=== PATIENT | female | born 1940 | race Caucasian/White ===

== ENCOUNTER 2017-07-07 16:45 | Emergency (ER) | payer OTHER ==
[~2017-07-07] VITALS: Ht 162.6 cm; Wt 90.0 kg
[~2017-07-07 16:45] MED LIST: ATOR10TA PO; CLOP75TA PO; FURO10S TUBE; GABA300C3 PO; HUMSS; LEVO88TA2 PO; MELO7.5 PO; METO2.5T7 PO
[2017-07-07 16:49] VITALS: BP 147/65; PULSE 83; RESP 20; TEMP 98.8; O2SAT 96
--- NOTE | 2017-07-07 18:01 | PD ---
Physical Exam Date Seen by Provider: Jul 07, 2017 Time Seen by Provider: 17:58 Narrative 77 y/o female with OLIVARES for the past 2 weeks. Patient states frequent falls, some with dizziness, sometimes she "blacks out". OLIVARES 08/26. Patient has multiple abrasions to her hands and knees without current bleeding. Vital Signs reviewed. Patient is Stable and awaiting Bed Placement. Data Data Last Documented VS Vital Signs Date Time Temp Pulse Resp B/P (MAP) Pulse Ox O2 Delivery O2 Flow Rate FiO2 07/07/17 16:49 98.8 83 20 147/65 (92) 96 Room Air [facility] Medical Record Reviewed: Yes Supervised Visit with SEAN: Yes Condition: Stable Jerome Burgos Jul 07, 2017 18:01
--- NOTE | 2017-07-07 18:09 | PD ---
Physical Exam Date Seen by Provider: Jul 07, 2017 Time Seen by Provider: 18:06 Narrative 77 y/o female with Hx. CAD and Type 2 DM requiring Insulin, here with "Terrible Chest Pain" since this AM. Hx. "Small Heart Attack about a month ago". Patient on PCN for sinus/eye infection for the past 3 days. + Nausea. No Vomiting. Blood Sugar elevated last night. EKG/ Labs/ CXR ordered. Vital Signs reviewed. Patient is Stable and awaiting Bed Placement. Data Data Last Documented VS Vital Signs Date Time Temp Pulse Resp B/P (MAP) Pulse Ox O2 Delivery O2 Flow Rate FiO2 07/07/17 16:49 98.8 83 20 147/65 (92) 96 Room Air MDM Medical Record Reviewed: Yes Supervised Visit with SEAN: Yes Condition: Stable Jerome Burgos Jul 07, 2017 18:09
[2017-07-07] MEDS ORDERED: ACETAMINOPHEN 500 MG CPLT PO ONE (18:15)
--- NOTE | 2017-07-07 18:49 | RADRPT ---
EXAM DATE/TIME: 07/07/2017 18:34 [place] COMPARISON: No previous studies available for comparison. INDICATIONS : Chest pain and pressure MEDICAL HISTORY : None. SURGICAL HISTORY : None. ENCOUNTER: Initial ACUITY: 3 days PAIN SCORE: 8/10 LOCATION: Bilateral chest FINDINGS: A single view of the chest demonstrates the lungs to be symmetrically aerated without evidence of mas s, infiltrate or effusion. The cardiomediastinal contours are unremarkable. Osseous structures are intact. CONCLUSION: No acute disease. Jaret Roldan MD on July 07, 2017 at 18:47 Board Certified Radiologist. This report was verified electronically.
[2017-07-07 19:11] VITALS: BP_SYST 182; BP_SYST 185; BP_DIAS 82; BP_DIAS 83; PULSE 72; RESP 18; O2SAT 95
--- NOTE | 2017-07-07 19:13 | PD ---
HPI Chief Complaint: Chest Pain Time Seen by Provider: 19:05 Travel History International Travel<30 days: No Contact w/Intl Traveler<30days: No (pt 4 day delay in airport) Traveled to known affect area: No History of Present Illness HPI Patient comes in planning of intermittent chest pain ongoing over the past 3 days. Patient reports associated shortness of breath, cough, headaches, nausea , and tingling in her bilateral fingers. Patient just came home 2 days ago after sitting in the airport on standby for 4 days trying to go out of town to see her brother. While at the airport patient reports she pickup in case of conjunctivitis and is on antibiotics for this. Patient denies anything making her symptoms worse. Patient states she did use an inhaler that her daughter gave her that seemed to help with her breathing some. Denies any loss or change in bowel or bladder, vomiting, abdominal pain, or fevers. PFSH Past Medical History Cardiovascular Problems: Yes Cerebrovascular Accident: Yes Diabetes: Yes Social History Tobacco Use: No Substance Use: No Allergies-Medications (Allergen,Severity, Reaction): Coded Allergies: iodine (Unverified Allergy, Mild, 07/01/17) potassium iodide (Unverified Allergy, Mild, 07/01/17) povidone-iodine (Unverified Allergy, Mild, 07/01/17) sodium iodide (Unverified Allergy, Mild, 07/01/17) sodium iodide (Unverified Allergy, Mild, 07/01/17) Reported Meds & Prescriptions Reported Meds & Active Scripts Active Tamiflu (Oseltamivir Phosphate) 75 Mg Cap 75 Mg PO BID 5 Days Reported Lantus Inj (Insulin Glargine) 1,000 Unit/10 Ml Vial 25 Units SQ HS Amoxicillin-Clavulanate 875-125 mg Tab 875 Mg PO BID not for use in CrCl <30 mL/minute Vitamin B-12 (Cyanocobalamin) 1,000 Mcg Subl 1,000 Mcg SL DAILY Vitamin D3 (Cholecalciferol) 5,000 Unit Cap 5,000 Units PO DAILY Furosemide 40 Mg Tab 40 Mg PO DAILY Metolazone 5 Mg Tab 5 Mg PO DAILY Omeprazole 40 Mg Cap 40 Mg PO DAILY Losartan-Hydrochlorothiazide 100-25 Mg Tab 1 Tab PO DAILY Levothyroxine (Levothyroxine Sodium) 88 Mcg Tab 88 Mcg PO DAILY Clopidogrel (Clopidogrel Bisulfate) 75 Mg Tab 75 Mg PO DAILY Review of Systems Except as stated in HPI: all other systems reviewed are Neg Physical Exam Narrative GENERAL: Well-developed, overly nourished, in no acute distress, and non-ill appearing. SKIN: Focused skin assessment warm and dry. HEAD: Atraumatic. Normocephalic. EYES: Pupils equal and round. EOMI. No scleral icterus. No injection or drainage. ENT: No nasal bleeding or discharge. Mucous membranes pink and moist. NECK: Trachea midline. Supple. No nuclear rigidity. CARDIOVASCULAR: Regular rate and rhythm. No murmur appreciated. RESPIRATORY: No accessory muscle use. No respiratory distress. Scant wheezing noted throughout. Breath sounds equal bilaterally. GASTROINTESTINAL: Abdomen soft, non-tender, nondistended, and no guarding. Hepatic and splenic margins not palpable. No pulsatile mass. MUSCULOSKELETAL: No obvious deformities. No clubbing. No cyanosis. No edema. Full range of motion. NEUROLOGICAL: Awake and alert. No obvious cranial nerve deficits. Motor grossly within normal limits. Normal speech. PSYCHIATRIC: Appropriate mood and affect; insight and judgment normal. Data Data Last Documented VS Orders Orders Electrocardiogram (07/07/17 18:10) Ckmb (Isoenzyme) Profile (07/07/17 18:10) Complete Blood Count With Diff (07/07/17 18:10) Comprehensive Metabolic Panel (07/07/17 18:10) Magnesium (Mg) (07/07/17 18:10) Prothrombin Time / Inr (Pt) (07/07/17 18:10) Act Partial Throm Time (Ptt) (07/07/17 18:10) Troponin I (07/07/17 18:10) Chest, Single Ap (07/07/17 18:10) Acetaminophen (Tylenol) (07/07/17 18:15) Ecg Monitoring (07/07/17 19:06) Bilateral Bp Monitoring (07/07/17 19:06) Iv Access Insert/Monitor (07/07/17 19:06) Oximetry (07/07/17 19:06) Oxygen Administration (07/07/17 19:06) Aspirin Chew (Aspirin Chew) (07/07/17 19:15) Sodium Chloride 0.9% Flush (Ns Flush) (07/07/17 19:15) Nitroglycerin Sl (Nitrostat Sl) (07/07/17 19:15) Influenzae A/B Antigen (07/07/17 19:06) Albuterol-Ipratropium Neb (Duoneb Neb) (07/07/17 19:30) CKMB (07/07/17 19:15) CKMB% (07/07/17 19:15) Labs Laboratory Tests Test 07/07/17 19:15 White Blood Count 7.1 TH/MM3 Red Blood Count 4.51 MIL/MM3 Hemoglobin 11.8 GM/DL Hematocrit 37.4 % Mean Corpuscular Volume 82.9 FL Mean Corpuscular Hemoglobin 26.2 PG Mean Corpuscular Hemoglobin Concent 31.6 % Red Cell Distribution Width 15.6 % Platelet Count 202 TH/MM3 Mean Platelet Volume 8.3 FL Neutrophils (%) (Auto) 75.0 % Lymphocytes (%) (Auto) 12.5 % Monocytes (%) (Auto) 7.8 % Eosinophils (%) (Auto) 4.2 % Basophils (%) (Auto) 0.5 % Neutrophils # (Auto) 5.3 TH/MM3 Lymphocytes # (Auto) 0.9 TH/MM3 Monocytes # (Auto) 0.6 TH/MM3 Eosinophils # (Auto) 0.3 TH/MM3 Basophils # (Auto) 0.0 TH/MM3 CBC Comment DIFF FINAL Differential Comment Prothrombin Time 10.2 SEC Prothromb Time International Ratio 0.9 RATIO Activated Partial Thromboplast Time 22.3 SEC Blood Urea Nitrogen 37 MG/DL Creatinine 2.84 MG/DL Random Glucose 144 MG/DL Total Protein 7.8 GM/DL Albumin 3.3 GM/DL Calcium Level 8.9 MG/DL Magnesium Level 2.0 MG/DL Alkaline Phosphatase 99 U/L Aspartate Amino Transf (AST/SGOT) 39 U/L Alanine Aminotransferase (ALT/SGPT) 16 U/L Total Bilirubin 0.4 MG/DL Sodium Level 135 MEQ/L Potassium Level 5.3 MEQ/L Chloride Level 105 MEQ/L Carbon Dioxide Level 21.9 MEQ/L Anion Gap 8 MEQ/L Estimat Glomerular Filtration Rate 16 ML/MIN Total Creatine Kinase 162 U/L Creatine Kinase MB 0.9 NG/ML Troponin I LESS THAN 0.02 NG/ML MDM Medical Decision Making Medical Screen Exam Complete: Yes Emergency Medical Condition: Yes Interpretation(s) EKG reviewed by Dr. Kinsey shows ectopic atrial rhythm with ventricular rate of 72. No STEMI. Chest x-ray read by radiologist shows: No acute disease. Differential Diagnosis Pneumonia, acute coronary syndrome, bronchitis, pneumothorax, electrolyte imbalance, influenza, other Narrative Course Patient looks great. Patients symptom complex is consistent with Influenza, or flu-like illness. The patient is tolerating fluids and is well hydrated. There is no evidence to suggest secondary infection (pneumonia, sepsis/bacteremia, etc.) at this time. Chest X-ray was performed and negative for consolidation/ pneumonia. I discussed with the patient and daughter, diagnosis, and plan of care and to follow up with the patients primary physician. Flu prep is positive. I discussed with the patient initiating Tamiflu and the patient agreed with plan. The patient was instructed to return if the worsens in anyway , especially if not tolerating fluids, increased pain or swelling, difficulty swallowing or breathing, or as needed. The patient agreed with plan. Patient in no obvious distress upon re-evaluation. All pertinent laboratory/ Radiology result(s) discussed with patient/family. Discussed patient with Dr. Kinsey prior to discharge, who is in agreement with plan of care and disposition. Patient was asked if they wanted to speak to my attending, which the patient did not wish to do at this time. Any questions/concerns in reference to patient diagnosis/condition discussed and clarified prior to patient's discharge. Reinforced sheer importance of close follow up with patient 's primary physician or primary care clinic. Instructed patient to return to ED immediately, if symptoms return/worsen. Pt showed understanding of above instructions. Further instructions and recommendations were detailed in discharge paperwork. Pt ambulated without difficulty out of ED at discharge. Diagnosis Primary Impression: Influenza A Patient Instructions: General Instructions, Influenza (DC) Additional Instructions: Follow-up with your primary care physician in 3-5 days for reevaluation. Take all medication as prescribed. Drink plenty of non-caffeinated and nonalcoholic fluids. Use [id number] Tylenol and/or ibuprofen as needed for pain and/ or fevers. Follow instructions on the packaging. Return to the emergency department if symptoms get worse unable tolerate fluids, or for other concerns. Med/Other Pt SpecificInfo: Prescription(s) given Scripts Oseltamivir (Tamiflu) 75 Mg Cap 75 MG PO BID for Mgmt Viral Infection for 5 Days, CAP 0 Refills Prov: Alli Kinsey MD 07/07/17 Disposition: 01 DISCHARGE HOME Condition: Stable Bismark Hathaway Jul 07, 2017 19:13
[2017-07-07] MEDS ORDERED: ASPIRIN 81 MG CHEW TAB PO ONE (19:15)
[2017-07-07] MEDS ORDERED: SODIUM CHLORIDE 0.9% FLUSH 10 ML FLUSH IVF PRN (19:15)
[2017-07-07] MEDS ORDERED: NITROGLYCERIN 0.4 MG SL 25 TABS/BTL SL SCH (19:15)
[2017-07-07] MEDS ORDERED: CHOL5000 PO (19:22)
[2017-07-07] MEDS ORDERED: CLOP75TA PO (19:22)
[2017-07-07] MEDS ORDERED: METO5TAB3 PO (19:22)
[2017-07-07] MEDS ORDERED: OMEP40CA2 PO (19:22)
[2017-07-07] MEDS ORDERED: AMOX875T2 PO (19:22)
[2017-07-07] MEDS ORDERED: LEVO88TA2 PO (19:22)
[2017-07-07] MEDS ORDERED: FURO40TA PO (19:22)
[2017-07-07] MEDS ORDERED: LOSA100T2 PO (19:22)
[2017-07-07] MEDS ORDERED: VITA100021 SL (19:22)
[2017-07-07] MEDS ORDERED: LANTUS2P SQ (19:22)
[2017-07-07] MEDS ORDERED: RESP: ALBUTEROL 2.5 MG/IPRATROPIUM 0.5 MG NEB (SCH) INH ONE (19:30)
[2017-07-07 19:49] VITALS: O2SAT 96
[2017-07-07 19:49] LABS: AUTOMATED NEUTROPHIL # 5.3 TH/MM3 (1.8-7.7); BASOPHIL % 0.5 % (0.0-2.0); EOSINOPHIL # 0.3 TH/MM3 (0-0.4); EOSINOPHIL % 4.2 % (0.0-4.0); HEMATOCRIT 37.4 % (35.0-46.0); HEMO FLAGS DIFF FINAL; LYMPH % 12.5 % (9.0-44.0); LYMPHOCYTE # 0.9 TH/MM3 (1.0-4.8); MEAN CELL VOLUME 82.9 FL (80.0-100.0); MEAN CORPUSCULAR HEMOGLOBIN 26.2 PG (27.0-34.0); MEAN CORPUSCULAR HGB CONC 31.6 % (32.0-36.0); MONO % 7.8 % (0.0-8.0); PLATELET COUNT 202 TH/MM3 (150-450); RED BLOOD COUNT 4.51 MIL/MM3 (4.00-5.30); RED CELL DISTRIBUTION WIDTH 15.6 % (11.6-17.2); WHITE BLOOD COUNT 7.1 TH/MM3 (4.0-11.0)
[2017-07-07 19:58] LABS: APTT (PATIENT) 22.3 SEC (24.3-30.1); INTERNATIONAL NORMALIZED RATIO 0.9 RATIO; PROTHROMBIN TIME - PATIENT 10.2 SEC (9.8-11.6)
[2017-07-07 20:04] LABS: ALT (GPT) 16 U/L (10-53)
[2017-07-07 20:06] LABS: ANION GAP 8 MEQ/L (5-15); AST (GOT) 39 U/L (15-37); BICARBONATE 21.9 MEQ/L (21.0-32.0); CHLORIDE 105 MEQ/L (98-107); GLOMERULAR FILTRATION RATE 16 ML/MIN (>89); SODIUM (NA) 135 MEQ/L (136-145)
[2017-07-07 20:07] LABS: POTASSIUM 5.3 MEQ/L (3.5-5.1)
[2017-07-07 20:17] LABS: ALKALINE PHOSPHATASE 99 U/L (45-117); BLOOD UREA NITROGEN 37 MG/DL (7-18); CREATINE KINASE 162 U/L (26-192); TOTAL BILIRUBIN ADULT 0.4 MG/DL (0.2-1.0)
[2017-07-07 20:29] LABS: CKMB 0.9 NG/ML (0.5-3.6)
[2017-07-07] MEDS ORDERED: OSEL75 PO (22:08)
[2017-07-07 23:17] VITALS: O2SAT 96
--- NOTE | 2017-07-08 13:36 | EKG ---
Date Performed: 07/07/2017 Time Performed: 19:02:44 PTAGE: 77 years EKG: ECTOPIC ATRIAL RHYTHM BORDERLINE LEFT AXIS DEVIATION ABNORMAL RHYTHM ECG NO PREVIOUS TRACING DOCTOR: Sherri Fernandez Interpretating Date/Time 07/08/2017 13:32:44
== END 2017-07-07 23:37 | disposition home or self-care (01) ==
LOC: NEPE 16:45
DX: J10.89 Influenza due to other identified influenza virus with other manifestations (principal); R94.31 Abnormal electrocardiogram [ECG] [EKG]; E11.9 Type 2 diabetes mellitus without complications; Z79.4 Long term (current) use of insulin
CPT/HCPCS: 71010; 80053; 82550; 82552; 83735; 84484; 85025; 85610; 85730; 87804; 93005; 94664; 99285